=== PATIENT | male | born 1935 | race Caucasian/White ===

== ENCOUNTER 2024-04-24 09:16 | Outpatient (REF) | payer MEDICARE, BC, SELFPAY ==
--- NOTE | ~2024-04-24 | XR_ITS ---
EXAMINATION: XR SHOULDER, RIGHT CLINICAL INFORMATION: Patient states no trauma or injury, on and off right chronic shoulder pain. COMPARISON: None available. TECHNIQUE: Four views of the right shoulder. FINDINGS: Diffuse demineralization. Advanced degenerative changes in the acromioclavicular joint with joint space narrowing and hypertrophic change. Small soft tissue calcification along the superior aspect of the glenoid. Moderate degenerative changes in the glenohumeral joint. Hypertrophic change along the inferior aspect of the glenoid. XR/XR shoulder RT min 2V IMPRESSION: 1. Advanced degenerative changes in the acromioclavicular joint. 2. Moderate degenerative changes in the glenohumeral joint.
== END 2024-04-24 09:17 | disposition home or self-care (01) ==
LOC: HO.XRAY 09:16
PROVIDERS: PCP Internal Medicine; Visit Provider Internal Medicine
DX: M25.511 Pain in right shoulder (principal)
CPT/HCPCS: 73030

== ENCOUNTER 2024-05-07 08:07 | Outpatient (AMB) | payer MEDICARE, BC, SELFPAY ==
--- NOTE | 2024-05-07 08:19 | MHC.OFFVIS ---
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 Patient reports ongoing pain for a few years. He is a previous patient of which he saw him for his shoulder. gave patient some exercise to do from home which gave him mild relief. He mentions about a year ago he felt his shoulder is very sore. 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 He currently states he has pain and soreness in his shoulder that radiates down to his arm. His pain is aggravated abduction, overhead reaching, laying on back or shoulder, and at night. He was previously seen by Dr. Mcdonald who gave him some home exercises to work which provided him no relief. He takes Tylenol for his pain with benefits. [facility]LY [facility] Social History (Updated 05/07/24 @ 08:23 by Christine Medrano) Alcohol intake: current Alcohol intake frequency: a few times a week Alcohol type: wine Patient Tobacco Use Status: Never used Tobacco Current occupational status: retired Review of Systems Const All systems reviewed & are unremarkable except as noted in HPI and below Physical Exam Vital Signs: BMI result Body Mass Index 19.3 Const General: cooperative, healthy appearing, comfortable, no acute distress, well developed and alert Orientation/consciousness: patient oriented x3 HEENT Head: Yes normal to inspection, Yes normocephalic and Yes atraumatic Eyes General: appearance normal, both eyes and all related structures Resp Effort & Inspection: normal respiratory effort and able to speak in complete sentences Cardio Rate: regular rate Peripheral pulses: Peripheral pulses 2+ throughout GI Palpation (GI): Soft to palpation Skin Lesions: no lesions Rashes: no rashes Neuro General: patient oriented x3 Extrem Other: Right shoulder: Normal to inspection. Tenderness over the bicipital groove and along the deltoid region of the shoulder. Forward flexion to 175, external rotation to 90, internal rotation to S1. 5/5 RTC strength. Negative Main and cross body abduction. NVI. Office Procedures Joint Injection/Aspiration Joint Injection/Aspiration Primary Site: right knee Prep: site was prepped using aseptic technique, ethochloride spray was applied and injection warnings given Injected: 80 mg of, DepoMedrol, with 8 mL of, 1% plain lidocaine and in the subcromial space Approach Used: posterolateral Procedure: The patient tolerated the procedure well and there was some relief with the local anesthesia Coding 19380 - Glenohumeral/Tronchanteric Bursa/Intraarticular Procedure code (CPT) selection complete Results Reviewed Results Reviewed: xrays of the right shoulder obtained on 04/24/24 show ac joint oa with sloping of the acromion Assessment & Plan Assessment & Plan (1) Osteoarthritis of right acromioclavicular joint: Code(s): M19.011 - Primary osteoarthritis, right shoulder Category: Medical (2) Tendinitis of right rotator cuff: Code(s): M75.81 - Other shoulder lesions, right shoulder Category: Medical Plan We discussed options today, which include steroid injection. The patient did consent to move forward with the right shoulder injection, which was tolerated well. I recommended rest, ice, and elevation and OTC anti-inflammatories as needed for discomfort. If symptoms persist or worsen over the next 6-8 weeks, patient will contact the office, otherwise follow-up as needed. ? Patient Instructions: Scribed for Jonathan Moran PA-C, by João Padilla medical equipment repair technician, on 05/07/2024 at 8:00 AM EST.? I, Jonathan Moran PA-C, have personally reviewed and agree with the information entered by the scribe. Coding Level of Care Code New Pt Level 3 (09590) Diagnoses Osteoarthritis of right acromioclavicular joint M19.011 Tendinitis of right rotator cuff M75.81 CPT Codes Coding - Joint 7: 30622 - Glenohumeral/Tronchanteric Bursa/Intraarticular ([id number])
[2024-05-07 08:24] VITALS: BMI 19.3
== END 2024-05-07 09:27 | disposition home or self-care (01) ==
PROVIDERS: PCP Internal Medicine; Visit Provider Physician Assistant
DX: M19.011 Primary osteoarthritis, right shoulder (principal); M75.81 Other shoulder lesions, right shoulder
CPT/HCPCS: 20610; 99203

== ENCOUNTER → 2024-05-07 08:07 | Outpatient (BNVA) | payer MEDICARE, BC, SELFPAY | PROVIDERS: PCP Internal Medicine; Visit Provider Physician Assistant | DX: M19.011 Primary osteoarthritis, right shoulder (principal); M75.81 Other shoulder lesions, right shoulder | CPT/HCPCS: 20610; 99202; J1010 ==

== ENCOUNTER 2024-08-07 09:30 | Outpatient (AMB) | payer BC, MEDICARE, SELFPAY ==
--- NOTE | 2024-08-07 09:32 | MHC.OFFVIS ---
Vital Signs 08/07/24 09:34 Height 5 ft 7 in Weight 123 lb BMI 19.3 Intake Visit Reasons: Right shoulder pain Intake Note: Pio is an 89 year old male who presents with complaints of progressively worsening right shoulder pain. He describes his pain as sharp in nature. He reports mild weakness in his right shoulder. He has had injections in the past which gave him fairly good relief. He has tried Tylenol and anti-inflammatory medicines which gave him minimal relief. Allergies No Known Allergies [No Known Allergies*] Allergy (Unverified 08/07/24 09:34) Lisinopril Allergy (Unknown, Uncoded 08/07/24 09:34) Unknown Simvastatin Allergy (Unknown, Uncoded 08/07/24 09:34) Unknown Medication List - Last Reconciled 08/07/24 by Yusuf Mcdonald MD atorvastatin 10 mg PO DAILY [facility] Social History Alcohol intake: current Alcohol intake frequency: a few times a week Alcohol type: wine Patient Tobacco Use Status: Never used Tobacco Current occupational status: retired Physical Exam Vital Signs: BMI result Body Mass Index 19.3 Const Other: Well-nourished well-developed very friendly female awake alert and oriented x3 in no acute distress Extrem Other: Bilateral upper extremity examination shows good capillary refill, no skin lesions noted, normal sensation light touch Right shoulder examination shows slightly decreased range motion when compared to his left shoulder, 4+ out of 5 strength with supraspinatus testing, positive impingement signs, no instability Office Procedures AMB Joint Injection/Aspiration Joint Injection/Aspiration Primary Site: right shoulder Prep: site was prepped using aseptic technique Injected: 40 mg of, DepoMedrol and 1% plain lidocaine Procedure: The patient tolerated the procedure well Coding 09070 - Large joint Procedure code (CPT) selection complete Results Reviewed Results Reviewed: X-rays of the patient's right shoulder show severe acromioclavicular joint narrowing, a type 2 acromion, no acute bony abnormalities Assessment & Plan Assessment & Plan (1) Impingement of right shoulder: Code(s): M25.811 - Other specified joint disorders, right shoulder Category: Medical (2) Right shoulder pain: Code(s): M25.511 - Pain in right shoulder Plan Mr. Stewart presents with right shoulder pain due to impingement syndrome. I had a lengthy discussion with the patient regarding the treatment options. The risks and benefits of a right shoulder cortisone injection were discussed at length with the patient. The patient wished to proceed. He tolerated the injection well. He will continue with his home stretching program to prevent stiffness. He will contact me prior to his follow-up appointment in 3 months should any questions or concerns arise. Feel free to call me any time should questions regarding his orthopedic management arise. I spent 22 minutes in reviewing the patient's records and imaging studies, seeing the patient and documenting in the medical record. Orders: Orders AMB Joint Injection/Aspiration Today M25.811 - Other specified joint disorders, right shoulder Coding Level of Care Code Est Pt Level 3 (81215) Complex EM visit Add On G2211 Diagnoses Impingement of right shoulder M25.811 Right shoulder pain M25.511 CPT Codes Coding - 90637 Large joint: 31874 - Large joint ([id number])
[2024-08-07 09:34] VITALS: BMI 19.3
== END 2024-08-07 10:02 | disposition home or self-care (01) ==
PROVIDERS: PCP Internal Medicine; Visit Provider Orthopaedic Surgery
DX: M25.811 Other specified joint disorders, right shoulder (principal); M25.511 Pain in right shoulder
CPT/HCPCS: 20610; 99213

== ENCOUNTER → 2024-08-07 09:30 | Outpatient (BNVA) | payer BC, MEDICARE, SELFPAY | PROVIDERS: PCP Internal Medicine; Visit Provider Orthopaedic Surgery | DX: M25.811 Other specified joint disorders, right shoulder (principal) | CPT/HCPCS: 20610; J1010; J2003 ==

== ENCOUNTER 2024-11-18 10:35 | Outpatient (AMB) | payer MEDICARE, SELFPAY ==
--- NOTE | 2024-11-18 10:42 | A.OFFVIS_ITS ---
Vital Signs 11/18/24 10:46 Height 5 ft 7 in Weight 123 lb BMI 19.3 Intake Visit Reasons: Neck pain Intake Note: Pio is an 89 year old male who presents with complaints of progressively worsening neck pain which radiates down his right arm to his right hand. He also has chronic weakness in his right arm. States that his neck pain has gotten worse over the last year in spite of continued non operative treatments. He has tried Tylenol and anti-inflammatory medicines which gave him minimal relief. Has had cortisone injections given into his right shoulder in the past. The most recent injection gave him no relief. The patient reports difficulty lifting his right hand above shoulder height. He also states that he has weakness in his right hand when preparing dinner. Allergies No Known Allergies [No Known Allergies*] Allergy (Unverified 11/18/24 10:47) Lisinopril Allergy (Unknown, Uncoded 11/18/24 10:47) Unknown Simvastatin Allergy (Unknown, Uncoded 11/18/24 10:47) Unknown Medication List - Last Reconciled 11/18/24 by Yusuf Mcdonald MD atorvastatin 10 mg PO DAILY memantine 10 mg PO BID [facility] Social History Alcohol intake: current Alcohol intake frequency: a few times a week Alcohol type: wine Patient Tobacco Use Status: Never used Tobacco Current occupational status: retired Physical Exam Vital Signs: BMI result Body Mass Index 19.3 Const Other: Well-nourished well-developed very friendly male awake alert and oriented x3 in no acute distress Neck Other: Cervical spine examination shows right-sided paraspinal muscle tenderness, pain with range of motion, positive Spurling's test, 4/5 strength with testing of his right biceps and wrist extensors when compared to 5/5 strength on his left side Assessment & Plan Assessment & Plan (1) Neck pain on right side: Code(s): M54.2 - Cervicalgia Category: Medical Plan Mr. Stewart presents with progressively worsening neck pain which radiates into his right arm as well as associated right arm weakness most likely due to cervical stenosis or a disc herniation. Thus, I will send the patient for an MRI of his cervical spine for further evaluation. I will contact him by phone with results once available. He will call me prior to that time should his symptoms worsen in any way. Feel free to call me at any time should questions regarding his orthopedic management arise. I spent 21 minutes in reviewing the patient's records and imaging studies, seeing the patient and documenting in the medical record. Orders: Orders MR cervical spine wo con Today M54.2 - Cervicalgia Coding Level of Care Code Est Pt Level 3 (91869) Complex EM visit Add On G2211 Diagnoses Neck pain on right side M54.2
[2024-11-18 10:46] VITALS: BMI 19.3
--- OUTSIDE RECORDS SUMMARY | 2024-11-18 12:38 | XMS_ITS | Clinical Summary ---
Author Organization [facility] Address [address] [address] Phone Care Team Providers Care Fine Hairer Name Role Phone Adam Locke MD Primary Care Provider [phone] Allergies No known active allergies Medications atorvastatin (LIPITOR) 10 MG tablet Take 10 mg by mouth 1 (one) time each day 07/30/2022 Active memantine (NAMENDA) 10 MG tablet Take 20 mg by mouth 1 (one) time each day 06/12/2022 Active polyethylene glycol (GLYCOLAX) 17 g packet Take 17 g by mouth 1 (one) time each day Active Calcium Carbonate (CALCIUM 600 PO) Take 1 tablet by mouth 1 (one) time each day Active [place]-3 Fatty Acids (Fish Oil) 1200 MG capsule delayed-release Take 1 tablet by mouth 1 (one) time each day Active cholecalciferol (VITAMIN D-3) 25 MCG (1000 UT) tablet Take 1,000 Units by mouth 1 (one) time each day Active Active Problems Problem Noted Date Diagnosed Date Stage 3a chronic kidney disease 02/22/2023 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 Chronic kidney disease 09/05/2022 Encounters Date Type Department Care Team Description 09/01/2024 3:00 PM EST Office Visit [facility] [address] [address] Nikolai Anderson MD Stage 3 chronic kidney disease, not otherwise specified (HCC) (Primary Dx); Monoclonal gammopathy of undetermined significance (MGUS) from Last 3 Months Family History Medical History Relation Comments Diabetes Father Stroke Father Heart disease Mother Relation Status Comments Father Mother Social History Tobacco Use Types Packs/Day Years Used Date Smoking Tobacco: Former Cigarettes Smokeless Tobacco: Never Tobacco Cessation:Counseling Given: No Alcohol Use Standard Drinks/Week Comments Yes 0 (1 standard drink = 0.6 oz pur e alcohol) Sex and Gender Information Value Date Recorded Sex Assigned at Not on file Legal Sex Male 11:32 AM EDT Gender Identity Not on file Sexual Orientation Not on file Last Filed Vital Signs Vital Sign Reading Time Taken Comments Blood Pressure 108/80 09/01/2024 3:26 PM EST Pulse 78 09/01/2024 3:26 PM EST Temperature - - Respiratory Rate - - Oxygen Saturation 94% 09/01/2024 3:26 PM EST Inhaled Oxygen Concentration - - Weight 56.2 kg (124 lb) 03/17/2024 1:01 PM EDT Height - - Body Mass Index - - Plan of Treatment Upcoming Encounters Date Type Department Care Team (Late st Contact Info) Description 03/02/2025 1:00 PM EDT Office Visit [facility] [address] [address] Nikolai Anderson MD [address] [phone] Health Maintenance Due Date Last Done Comments Pneumococcal Vaccine: 65+ Ye ars (1 of 2 - PCV) 1941 Influenza Vaccine (#1) 2024 Hepatitis B Vaccine Aged Out No longe r eligible based on patient's age to complete this topic Procedures Procedure Name Priority Date/Time Associated Diagnosis Comments PTH, INTACT Routine 08/20/2024 11:24 AM EST VITAMIN D 25 HYDROXY Routine 08/20/2024 11:24 AM EST URINE ALBUMIN / CREATININE RATIO Routine 08/20/2024 11:24 AM EST RENAL FUNCTION PANEL Routine 08/20/2024 11:24 AM EST from Last 3 Months Results * (ABNORMAL) Urine Albumin / Creatinine Ratio (08/20/2024 11:24 AM EST) Creatinine, Ur 87.4 Not Estab. mg/dL [facility] Urine Microalbumin 360.9 Not Estab. ug/mL [facility] Microalbumin/Crea tinine Ratio 413(H) 0 - 29 mg/g [facility] Comment: ? Normal: ?0 - ??29 ? Moderately increased: 30 - 300 ? Severely increased: ? >300 08/20/2024 11:2 4 AM EST 08/20/2024 Nikolai Anderson MD LAB URINE ORDERABLES Final Resul t [facility] [address] [place] [address] * Vitamin D 25 Hydroxy (08/20/2024 11:24 AM EST) Pathologist [facility] Vitamin D, 25-OH, Total 64.8 30.0 - 100.0 ng/mL [facility] Comment: Vitamin D deficiency has been defined by the [place] of Medicine and an Endocrine Society practice guideline as a level of serum 25-OH vitamin D less than 20 ng/mL (1,2). The Endocrine Society went on to further define vitamin D insufficiency as a level between 21 and 29 ng/mL (2). 1. IOM ([place] of Medicine). 2010. Dietary reference ?? intakes for calcium and D. Mcdonald [place]: The ?? National AcademLight Sciences Oncology Press. 2. Lauren MF, José NC, Red AUGUSTE, et al. ?? Evaluation, treatment, and prevention of vitamin D ?? deficiency: an Endocrine Society clinical practice ?? guideline. JCEM. 2011 Mar; 96(7):1911-30. 08/20/2024 11:2 4 AM EST 08/20/2024 us Nikolai Anderson MD LAB BLOOD ORDERABLES Final Resul t Performing Organization Address City/[facility]/ZIP Co de Phone Number [facility] [address] [place] [address] * PTH, Intact (08/20/2024 11:24 AM EST) PTH 29 15 - 65 pg/mL [facility] 08/20/2024 11:2 4 AM EST 08/20/2024 us Nikolai Anderson MD LAB BLOOD ORDERABLES Final Resul t Performing Organization Address [facility] de Phone Number [facility] [address] [place] [address] * (ABNORMAL) Renal Function Panel (08/20/2024 11:24 AM EST) Glucose 91 70 - 99 mg/dL [facility] BUN 40(H) 8 - 27 mg/dL [facility] Creatinine 1.51(H) 0.76 - 1.27 mg/dL [facility] eGFR CKD-EPI CR 2020 44(L) >59 mL/min/1.7 3 [facility] BUN/Creatinine Ratio 26(H) 10 - 24 [facility] Sodium 144 134 - 144 mmol/L [facility] Potassium 4.5 3.5 - 5.2 mmol/L [facility] Chloride 103 96 - 106 mmol/L [facility] Bicarbonate (CO2) 26 20 - 29 mmol/L [facility] Calcium 9.5 8.6 - 10.2 mg/dL [facility] Albumin 4.2 3.7 - 4.7 g/dL [facility] Phosphorus 4.1 2.8 - 4.1 mg/dL [facility] 08/20/2024 11:2 4 AM EST 08/20/2024 us Nikolai Anderson MD LAB BLOOD ORDERABLES Final Resul t [facility] [address] [place] [address] from Last [address] Mon[address] [place] [address] [place] [id number] [facility] MEDICARE [facility] Care Teams Fine Hairer Relationship Specialty Start Date End Date Adam Locke MD [address] [place] [id number] PCP - General Internal Medicine 06/07/22
--- OUTSIDE RECORDS SUMMARY | 2024-11-18 12:38 | XMS_ITS | Clinical Summary ---
Author Organization [facility] Address [address] [place] [address] Care Team Providers Care Nurse Executive Name Role Phone Adam Locke MD Primary Care Provider Unavail able Allergies No known active allergies Medications Medication Sig Dispensed Refills Start Date End Date Status atorvastatin (LIPITOR) tablet 10 mg 0 05/13/2017 Active triamcinolone (KENALOG) 0.1 % cream 0 03/29/2017 Active Family History Medical History Relation Name Comments Diabetes Father Relation Name Status Comments Father Social History Tobacco Use Types Packs/Day Years Used Date Smoking Tobacco: Never Assessed Sex and Gender Information Value Date Recorded Sex Assigned at Not on file Gender Identity Not on file Sexual Orientation Not on file Last Filed Vital Signs Vital Sign Reading Time Taken Comments Blood Pressure - - Pulse - - Temperature - - Respiratory Rate - - Oxygen Saturation - - Inhaled Oxygen Concentration - - Weight 65.8 kg (145 lb) 05/22/2017 10:47 AM EDT Height 170.2 cm (5' 7 ) 05/22/2017 10:47 AM EDT Body Mass Index 22.71 05/22/2017 10:47 AM EDT Plan of Treatment Health Maintenance Due Date Last Done Comments COVID-19 Vaccine (#1) 1935 Depression Screening 1947 Preventative Health Evaluation 1953 DTap / Tdap / Td (1 - Tdap) 1954 Shingrix-Zoster Vaccine (1 of 2) 1985 Fall Risk Assessment 2000 Pneumococcal Vaccine (1 of 1 - PCV) 2000 RSV Adult > 60+ Yrs or Pregn ant (1 - 1-dose 75+ series) 2010 Influenza Vaccine (#1) 2024 Hepatitis B Vaccines Aged Out No long er eligible based on patient's age to complete this topic RSV Ped < 20 months Aged Out No longe r eligible based on patient's age to complete this topic Care Teams Nurse Executive Relationship Specialty Start Date End Date Adam Locke MD PCP - General Internal Medicine 05/03/17
== END 2024-11-18 11:10 | disposition home or self-care (01) ==
PROVIDERS: PCP Internal Medicine; Visit Provider Orthopaedic Surgery
DX: M54.2 Cervicalgia (principal)
CPT/HCPCS: 99213; G2211

== ENCOUNTER → 2024-11-18 10:35 | Outpatient (BNVA) | payer BC, MEDICARE, SELFPAY | PROVIDERS: PCP Internal Medicine; Visit Provider Orthopaedic Surgery | DX: M54.2 Cervicalgia (principal) | CPT/HCPCS: 99212 ==

== ENCOUNTER 2024-11-30 14:12 | Outpatient (REF) | payer MEDICARE, SELFPAY ==
--- NOTE | ~2024-11-30 | MR_ITS ---
EXAMINATION: MR CERVICAL SPINE WITHOUT CONTRAST CLINICAL INFORMATION: Cervicalgia. COMPARISON: None available. TECHNIQUE: MRI of the cervical spine was obtained using routine sequences without contrast. FINDINGS: Craniocervical junction is intact. Trace of fluid at the lateral masses of C1-C2.. Bone marrow inhomogeneity. No gross bone marrow STIR signal abnormality. Multilevel disc desiccation and marginal osteophyte formation and endplate irregularity C3 C7 more accentuated at C3-4 and C5-6 levels. Grade 1 retrolisthesis C3-4, C4-5 and C5-6 levels. Cervical spinal cord signal is normal. C2-3: No disc herniation. No neuroforamina stenosis. C3-4: Broad-based disc osteophyte complex formation. No cord compression. Facet joint hypertrophy bilaterally. Left neuroforamina narrowing on a degenerative basis. C4-5: Broad-based disc osteophyte complex formation. No cord compression. Facet joint and ligamentum flavum hypertrophy. Right neuroforamina narrowing. C5-6: Broad-based disc osteophyte complex formation. Facet joint and ligamentum flavum hypertrophy. Right neuroforamina narrowing. C6-7: No disc herniation. No neuroforamina stenosis. C7-T1: No disc herniation. No neuroforamina stenosis. No prevertebral compartment hematoma, mass or fluid collection. Flow-void signal within the main vessels is normal with the exception of the left internal jugular vein demonstrated the intermediate T1 and slightly increased T2 signal. Codominant vertebral arteries. MR/MR cervical spine wo con IMPRESSION: Multilevel cervical spondylosis C3 C7 resulting in grade 1 retrolisthesis C3-4, C4-5 and C5-6 and mild central spinal canal stenosis C4-5 C5-6 left neuroforamina and C3-4 and right C4-5 and C5-6 neuroforamina narrowing. No cord compression, cord edema and or myelopathy. Probable slow flow left internal jugular vein. Electronically signed by: Kiran Canchola MD 12/01/2024 07:55 AM EDT
== END 2024-11-30 14:13 | disposition home or self-care (01) ==
LOC: HO.MRI 14:12
PROVIDERS: PCP Internal Medicine; Visit Provider Orthopaedic Surgery
DX: M54.2 Cervicalgia (principal)
CPT/HCPCS: 72141

== ENCOUNTER → 2024-11-30 14:21 | Outpatient (BNV) | payer MEDICARE, SELFPAY | PROVIDERS: PCP Internal Medicine; Visit Provider Radiology Diagnostic Radiology | DX: M48.02 Spinal stenosis, cervical region (principal) | CPT/HCPCS: 72141 ==

== ENCOUNTER 2024-12-18 12:48 | Outpatient (AMB) | payer MEDICARE, SELFPAY ==
[2024-12-18 12:56] VITALS: BP 167/72; PULSE 87; O2SAT 98; BMI 19.4
--- NOTE | 2024-12-18 12:56 | A.OFFVIS_ITS ---
Vital Signs 12/18/24 12:56 Height 5 ft 7 in Weight 124 lb BMI 19.4 BP 167/72 H Blood Pressure Location Rt brachial Position Sitting Pulse 87 Pulse Source Pulse Oximeter Pulse Oximetry (%) 98 Oxygen Delivery Method Room Air Intake Visit Reasons: Cervicalgia Accompanied by: Spouse Allergies No Known Allergies [No Known Allergies*] Allergy (Unverified 12/18/24 12:59) Lisinopril Allergy (Unknown, Uncoded 12/18/24 12:59) Unknown Simvastatin Allergy (Unknown, Uncoded 12/18/24 12:59) Unknown HPI Comments Details: Pio is very pleasant 89 years old gentleman who presents today in my office with complains on shoulder pain. He admits radiation of the pain into the upper shoulder from the mid shoulder however she denies radiation of the pain to the center of the neck. He reports that this pain started in 10 to 15 years ago. He was under care of Dr. Mcdonald who performed on several occasions intra- articular shoulder injections in the right shoulder. He admits that the pain was not relieved by the injections. He was sent for the MRI of the cervical spine and the report of the MRI see as below. He admits difficulty moving his right shoulder he can not sleep normally because of his pain, he can not do activities of daily living, he can take care of himself but he can not function normally. He is retired individual. He admits that he no longer enjoys playing golf for cutting his grass next to fix house because of his shoulder pain. In terms of tissue damage he reports his pain is jumping, flushing, shooting. He had multiple sessions of physical therapy for his shoulder with not significant improvement. He continues home exercise. It is getting harder and harder for him to get home exercise because of severe pain in his shoulder. Past medical history significant for prostate problems and arthritis. He had prostate surgery 20 years ago he denies smoking cigarettes he drinks wine in moderation he drinks 1-2 cups of coffee a day he denies recreational drugs. [facility] Surgical History (Updated 12/18/24 @ 13:01 by Dede Dorsey CMA) History of prostate surgery Social History Alcohol intake: current Alcohol intake frequency: a few times a week Alcohol type: wine Patient Tobacco Use Status: Never used Tobacco Current occupational status: retired Review of Systems Const Reports no additional complaints and Reports weight loss ENT Reports Normal hearing present Card Reports no additional complaints Resp Reports no additional complaints GI Reports no additional complaints Reports as per HPI Musc Reports as per HPI Neuro Reports Normal hearing present, Denies Abnormal speech present and Denies Sensory deficit (Neuro) Psych Reports no additional complaints Endo Reports no additional complaints Shaheen/Lymph Reports no additional complaints Physical Exam Vital Signs: Last Vital Signs Pulse 87 12/18/24 12:56 BP 167/72 H 12/18/24 12:56 Pulse Ox 98 12/18/24 12:56 Oxygen Delivery Method Room Air 12/18/24 12:56 BMI result Body Mass Index 19.4 Const General: no acute distress, alert, awake, Physically active, tired appearing and well groomed Nutritional Appearance: thin and underweight Orientation/consciousness: patient oriented x3 Eyes General: appearance normal, both eyes and all related structures Pupils: Equal, round and reactive pupils present EOM: EOMs intact bilaterally Neck Other: No tenderness on palpation in paraspinal spinal region of the cervical spine. Flexing head forward and backwards mild aggravate pain in his shoulder , bilateral triceps muscle reflex and brachioradialis reflex are symmetrical and +2. Performance of Spurling maneuver is impossible because of severe pain in the left shoulder. No pain aggravation with Spurling maneuver on the right shoulder. Lhermitte test is negative. Valsalva maneuver does not aggravate pain of the patient. Neck: Yes full ROM Chest Chest palpation & inspection: normal inspection of the chest Resp Effort & Inspection: normal respiratory effort, able to speak in complete sentences, normal respiratory pattern, no audible wheezes and no cough Cardio Jugular venous distension: no JVD GI Inspection: Yes normal to inspection Neuro General: patient oriented x3 and gait normal Cranial nerves: Yes CN's II-XII intact bilaterally, Yes Equal, round and reactive pupils present, Yes Normal hearing present and Yes Ability to bilater ally elevate shoulders present Speech: No Abnormal speech present Gait exam (Neuro): Normal gait present Motor exam (neuro): 5/5 motor strength present throughout Sensory Exam: No Sensory deficit (Neuro) Extrem Other: Severe crepitus is detected in the right shoulder of the patient with any motions performed. Bilateral upper extremity examination shows good capillary refill, no skin lesions noted, normal sensation light touch Right shoulder examination shows significantly decreased range motion when compared to his left shoulder, 4+ out of 5 strength with supraspinatus testing, no instability. General: No pedal edema Psych Speech and movement: Normal speech and movement present Affect: normal affect Attitude: cooperative Thought process: Normal thought process present Thought content: Normal thought content present Insight: Good insight present (Psych) Judgement: Good judgement present (Psych) Results Reviewed Results Reviewed: Cervical spine MRI 11/30/2024. Findings: Craniocervical junction is intact. Trace of fluid in the lateral masses of C1-C2. Bone marrow inhomogeneity. No gross bone marrow STIR signal abnormality. Multilevel disc desiccation and marginal osteophyte formation endplate irregularity C3-C7 more accentuated at C3-C4 and C5-C6 levels. Grade 1 retrolisthesis C3-C4 C4-C5 and C5-C6. Cervical spinal cord signal is normal. C2-C3: No disc herniation no neural foraminal stenosis. C3-C4: Broad-based disc osteophyte complex formation, no cord compression, facet joint hypertrophy bilaterally, left neural foraminal narrowing on degenerative basis. C4-C5: Broad-based disc osteophyte complex formation no cord compression. Facet joint and ligamentum flavum hypertrophy. Right neural foramina narrowing. C5-C6: Broad-based disc osteophyte complex formation. Facet joint and ligamentum flavum hypertrophy. Right neural foraminal narrowing. C6-C7 no disc herniation no neural foraminal stenosis. C7-T1: No disc herniation no neural foraminal stenosis. No prevertebral compartmental hematoma muscle fluid collection. Flow void signal within the main vessels is normal with the exception of left internal jugular vein demonstrating the intermediate T1 and slightly increased T2 signal. Codominant vertebral arteries. Impression: Multilevel cervical spondylosis C3 through C7 resulting in grade 1 retrolisthesis C3-C4, C4-C5 and C5-C6 and mild central canal stenosis C4-C5 C5- C6, left neural foraminal and C3-C4 and right C4-C5 and C5-C6 neural foraminal narrowing. No cord compression cord edema or myelopathy. Probable slow flow left internal jugular vein. X-ray shoulder on the right 04/24/2024. Findings: Diffuse demineralization. Advanced degenerative changes in the acromioclavicular joint with joint space narrowing in hypertrophic changes. Small soft tissue calcification along the superior aspect of the glenoid. Moderate degenerative changes in glenohumeral joint. Hypertrophic changes along the inferior aspect of the glenoid. Impression: Advanced degenerative changes in the acromioclavicular joint. Moderate degenerative changes in glenohumeral joint. Assessment & Plan Assessment & Plan (1) Osteoarthritis of right acromioclavicular joint: Code(s): M19.011 - Primary osteoarthritis, right shoulder Category: Medical (2) Arthritis of right glenohumeral joint: Code(s): M19.011 - Primary osteoarthritis, right shoulder Category: Medical (3) Spondylosis of cervical spine without myelopathy: Code(s): M47.812 - Spondylosis without myelopathy or radiculopathy, cervical region Category: Medical (4) Chronic pain syndrome: Code(s): G89.4 - Chronic pain syndrome Category: Medical (5) Right shoulder pain: Code(s): M25.511 - Pain in right shoulder Category: Medical Plan After examining this patient and evaluating this patient's diagnostic reports I was left under impression that his pain is coming from the advanced arthritis on the left shoulder and unlikely the results of the spondylosis of the cervical spine. Patient denies pain in the neck at rest, he has significant range of motion in the cervical spine with forward and backwards flexing. His reflexes are symmetrical bilaterally. On the MRI there is no nerve root compressions dictated. At the same time there is advanced AC and GH arthritic changes on the shoulder x-ray on the right. I would presume the significant arthritis the cause of the pain of this patient. I offered him suprascapular nerve block diagnostic to see if suprascapular nerve stimulation will help his pain. If not alternatively interscalene diagnostic injection could possibly alleviate his pain in the left shoulder. Sprint PNS could be offered after either injection for more permanent pain alleviation for this patient. Patient Instructions: I here by testify that I spent 45 minutes in conversation with this patient, evaluation of his diagnostic reports, planning his care and organizing this note. Coding Level of Care Code New Pt Level 4 (79040) Diagnoses Osteoarthritis of right acromioclavicular joint M19.011 Arthritis of right glenohumeral joint M19.011 Spondylosis of cervical spine without myelopathy M47.812 Chronic pain syndrome G89.4 Right shoulder pain M25.511
== END 2024-12-18 13:42 | disposition home or self-care (01) ==
LOC: HO.PMC 12:48
PROVIDERS: PCP Internal Medicine; Referring Provider Orthopaedic Surgery; Visit Provider Anesthesiology
DX: M19.011 Primary osteoarthritis, right shoulder (principal); M47.812 Spondylosis without myelopathy or radiculopathy, cervical region; G89.4 Chronic pain syndrome; M25.511 Pain in right shoulder
CPT/HCPCS: 99204

== ENCOUNTER → 2024-12-18 12:48 | Outpatient (BNVA) | payer MEDICARE, SELFPAY | PROVIDERS: PCP Internal Medicine; Referring Provider Orthopaedic Surgery; Visit Provider Anesthesiology | DX: M19.011 Primary osteoarthritis, right shoulder (principal); M47.812 Spondylosis without myelopathy or radiculopathy, cervical region; G89.4 Chronic pain syndrome | CPT/HCPCS: 99202 ==

== ENCOUNTER 2025-02-01 07:41 | Emergency (ER) | payer MEDICARE, SELFPAY ==
[2025-02-01] VITALS (9 sets, daily range): BP systolic 130–157; BP diastolic 62–86; PULSE 76–85; RESP 14–18; TEMP 36.4–36.8; O2SAT 97–99
--- NOTE | ~2025-02-01 | CT_ITS ---
CLINICAL HISTORY: fall CT cervical spine without contrast Comparison: MR - MR CERVICAL SPINE WO CON - 11/30/24 14:34 EDT Findings: Normal vertebral body alignment. There is multilevel degenerative disc disease particularly at the C3-4 through C5-6 levels. No acute fractures or dislocations. No acute findings on limited view of the intracranial contents. Soft tissues of the neck are normal. Lung apices are clear. IMPRESSION: No acute findings. Degenerative disc disease as above. This document has been electronically signed by: Glenn Ontiveros MD on 02/01/2025 09:04:14
--- NOTE | ~2025-02-01 | CT_ITS ---
CLINICAL HISTORY: fall headstrike CT head without contrast Comparison: None Findings: There is left frontal acute parenchymal and subarachnoid hemorrhage. The parenchymal hemorrhage measures approximately 1.6 x 1.2 x 2.1 cm. There is mild adjacent edema. A 2nd focal hemorrhage is seen in the right parietal region measuring 6 mm in greatest dimension. There is moderate cortical atrophy. The visualized paranasal sinuses and mastoid air cells are normal. The orbits are within normal limits. There is an overlying scalp hematoma. There is no evidence of fracture. No skull fracture. There is chronic sinusitis and nasal polyps are noted. Microvascular changes are noted. IMPRESSION: There is left frontal acute parenchymal and subarachnoid hemorrhage. The parenchymal hemorrhage measures approximately 1.6 x 1.2 x 2.1 cm. There is mild adjacent edema without significant mass effect. A 2nd focal hemorrhage is seen in the right parietal region measuring 6 mm in greatest dimension. This document has been electronically signed by: Glenn Ontiveros MD on 02/01/2025 09:05:41
--- NOTE | 2025-02-01 08:03 | ECG_ITS ---
Test Reason : FALL Blood Pressure : */* mmHG Vent. Rate : 79 BPM Atrial Rate : 79 BPM P-R Int : 158 ms QRS Dur : 76 ms QT Int : 394 ms P-R-T Axes : 76 77 70 degrees QTcB Int : 451 ms Normal sinus rhythm Nonspecific ST abnormality Abnormal ECG When compared with ECG of 20-Mar-2003 14:11, No significant changes seen Referred By: Estefany Lincoln Electronically Signed By: BARTOLO [place]
--- OUTSIDE RECORDS SUMMARY | 2025-02-01 08:04 | XMS_ITS | Clinical Summary ---
Author Organization [facility]. 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 Chronic kidney disease 09/05/2022 Family History Medical History Relation Comments Diabetes [...] Office Visit [facility] [address] [phone] Nikolai Anderson MD [address] [phone] Health Maintenance Due Date Last Done Comments Pneumococcal Vaccine: 50+ Ye ars (1 of 2 - PCV) 1954 Influenza Vaccine (Season Ended) 2025 Hepatitis B Vaccine Aged Out No longe r eligible based on patient's age to complete this topic Insurance Medicare [facility] Medicare [facility] Care Teams Ict Support And Test Engineers Relationship Specialty Start Date End Date Adam Locke MD [address] [place] [id number] PCP - General Internal Medicine 06/07/22
--- NOTE | 2025-02-01 08:14 | ED.WEAKNESS ---
HPI - Weakness General Chief complaint: Fall Stated complaint: fall +hs, ams Time Seen by Provider: 02/01/25 08:00 Source: patient, EMS and old records reviewed Mode of arrival: EMS Limitations: no limitations History of Present Illness ED Provider: YOVANY CARDOSO Narrative: 89 yo male with PMH of mild cognitive impairment, hyperlipidimia not on blood thinners. 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 After he was done cooking he felt very weak and dizzy. He tried to sit down but he fell hitting his head and thinks he had a brief LOC. Prior to feeling dizzy he had no CP/SOB. He has not been sick recently no fevers, dysuria, chest pain/sob, no GIB symptoms reported. He has no new medications. He notes recently when standing he does feel dizzy but he is usually able to sit down and rest for 30 minutes it then goes away. Has a laceration to left side of head. Bleeding controlled. Patient states brief LOC but EMS notes he was still unresponsive and slow to come around on their arrival. No seizure activity reported. 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) Duration: now resolved Location: generalized Migration: none Severity: moderate Quality: other Relieving factors: rest Exacerbating factors: other (standing up recently ) Associated symptoms: denies other symptoms Related Data Home Medications ?Medication ?Instructions ?Recorded ?Confirmed atorvastatin 10 mg tablet 10 mg PO DAILY 05/07/24 11/18/24 memantine 10 mg tablet 10 mg PO BID 11/18/24 11/18/24 Allergies Allergy/AdvReac Type Severity Reaction Status Date / Time No Known Allergies Allergy Verified 02/01/25 07:46 [No Known Allergies*] Lisinopril Allergy Unknown Unknown Uncoded 02/01/25 07:46 Simvastatin Allergy Unknown Unknown Uncoded 02/01/25 07:46 Review of Systems Review of Systems: Constitutional : No Fever, No Chills, No Fatigue ENT/Mouth : No sore throat, No Rhinorrhea Eyes: No Eye Pain, No Swelling, No Redness Cardiovascular : No Chest Pain, No SOB, No Dyspnea on Exertion Respiratory : No Cough, No Sputum Gastrointestinal : No Nausea, No Vomiting, No Diarrhea, No abdominal Pain Genitourinary : No Dysuria, No Urinary Frequency, No Hematuria, Musculoskeletal : No joint pain, No Myalgias, No Joint Swelling Skin : No Skin Lesions, No rash, pos laceration Neuro : No Weakness, No Numbness, No Dizziness, positive Headache All other systems reviewed and are negative [facility] Past Medical History Attestation statement: The following information was validated with the patient. 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 Chronic pain syndrome Surgical History History of prostate surgery Social History Social History Alcohol intake: current Alcohol intake frequency: a few times a week Alcohol type: wine Patient Tobacco Use Status: Never used Tobacco Smoked in Last 30 Days: No Use of substances other than those prescribed or required for medical reasons: No Advance Directives: No Advance Directives Information Provided: No Do you have a plan to hurt others: No Plan Current occupational status: retired Physical Exam Vital Signs: Vital Signs: Last Vital Signs Temp 97.6 F 02/01/25 09:21 Pulse 76 02/01/25 09:54 Resp 16 02/01/25 09:54 BP 142/86 H 02/01/25 09:54 Pulse Ox 98 02/01/25 09:54 O2 Del Method Room Air 02/01/25 09:54 BMI result Body Mass Index 20.0 Appearance: Alert. Oriented X3. No acute distress. Eyes: Pupils equal, round and reactive to light. ENT: Pharynx normal. L side of jewish area - abrasion and laceration covered in dried blood 2cm superficial abrasion and skin tear will use dermabond Neck: Normal inspection. Neck supple. CVS: Normal heart rate and rhythm. Pulses normal. Respiratory: No respiratory distress. Breath sounds normal. Abdomen: Soft and nontender. Skin: Skin warm and dry. Normal skin color. Normal skin turgor. Extremities: No lower extremity edema. No calf ttp Neuro: Oriented X 3. No motor deficit. No sensory deficit. CN2-12 intact. GCS 15 NIH Stroke Scale Internal: Initial- Upon Arrival Level of Consciousness: Alert Level of Consciousness Questions: Answers both questions correctly Level of Consciousness Commands: Performs both tasks correctly Best Gaze: Normal Visual: No visual loss Facial Palsy: Normal Motor Arm (Right): No drift Motor Arm (Left): No drift Motor Leg (Right): No drift Motor Leg (Left): No drift Limb Ataxia: Absent Sensory: Normal Best Language: No aphasia Dysarthia: Normal Extinction and Inattention: No abnormality Score: 0 Course Course Course Narrative: call to [facility] 907am Reevaluation(s) Reevaluation #1: accepted to [facility] for Trauma consult Dr. Pan 925am GCS 15 still given IV tylenol BP on DC under 150 systolic Reevaluation #2: c collar removed no posterior ttp and no radicular symptoms Medications Administered Discontinued Medications Generic Name Dose Route Start Last Admin Trade Name Freq PRN Reason Stop Dose Admin Acetaminophen 1,000 mg in 100 mls @ 400 mls/hr 02/01/25 09:42 02/01/25 09:51 Ofirmev IV 02/01/25 09:56 400 mls/hr ONCE ONE Administration Lidocaine/Epinephrine/Tetracaine 3 ml 02/01/25 08:02 02/01/25 08:30 Lidocaine/Racepinep/Tetracaine 3 Ml Gel.Pf.Denzel TOPICAL 02/01/25 08:03 Not Given ONCE ONE Medical Decision Making Medical Decision Making [facility] Narrative: 89 yo male with PMH of mild cognitive impairment, hyperlipidimia not on blood thinners here with episode of preceding dizziness then remembers falling down to the ground - he had a headstrike he does note brief LOC but he was unresponsive on EMS arrival - he is now alert and oriented x 3. He has head trauma on exam - at this time will need labs, CT head/cspine for trauma given age and temporal injury, EKG, ortho VS as he has had increasing positional symptoms, basic labs and EKG. No CP/SOB or exertional symptoms recently to suggest ACS/VTE. 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 02/01/25 08:18 02/01/25 08:18 Labs: Lab Results 02/01/25 02/01/25 Range/Units 08:18 08:19 WBC 6.8 (4.8-10.8) X10*3/uL RBC 3.09 L (4.60-5.80) X10*6/uL Hgb 9.5 L (14.0-18.0) g/dl Hct 29.7 L (42.0-52.0) % MCV 96.1 (80.0-98.0) fL MCH 30.7 (27.0-33.0) pg MCHC 32.0 (31.0-36.0) g/dl RDW 14.0 (11.0-16.0) % Plt Count 231 (160-400) X10*3/uL MPV 9.7 (9.4-12.4) fL Immature Gran % (Auto) 0.4 (0.0-0.4) % Neut % (Auto) 56.5 (45-73) % Lymph % (Auto) 25.9 (20-40) % [place] % (Auto) 13.4 H (2-11) % Eos % (Auto) 3.1 (0-4) % Baso % (Auto) 0.7 (0-2) % Lymph # (Auto) 1.8 (1.2-4.9) X10*3/uL [place] # (Auto) 0.9 (0.1-1.2) X10*3/uL Eos # (Auto) 0.2 (0.0-0.4) X10*3/uL Baso # (Auto) 0.1 (0.0-0.2) X10*3/uL Abs Immat Gran (auto) 0.03 (0.00-0.03) X10*3/uL Absolute Neuts (auto) 3.8 (2.0-8.3) x10*3/uL Absolute Nucleated RBC 0.000 (0.0-0.012) X10*3/uL Nucleated RBC % (auto) 0.0 (0.0-0.2) /100WBC Sodium 145 (135-145) mmol/L Potassium 4.6 (3.3-5.1) mmol/L Chloride 108 (96-108) mmol/L Carbon Dioxide 28 (22-29) mmol/L Anion Gap 14 (12-20) BUN 36 H (9-16) mg/dL Creatinine 1.66 H (0.5-1.4) mg/dL Estim Creat Clear Calc 24.7 Estimated GFR 39 Random Glucose 118 H (60-115) mg/dL Calcium 8.7 (8.4-10.2) mg/dL Magnesium 2.1 (1.6-2.6) mg/dL Total Bilirubin 0.3 (0.0-1.0) mg/dL Direct Bilirubin 0.1 (0.0-0.5) mg/dL AST 23 (5-37) U/L ALT 17 (0-40) U/L Alkaline Phosphatase 53 (39-117) U/L Troponin I High Sens 5.0 (<3.5-35.0) ng/L C-Reactive Protein < 0.04 (< or = 0.50) mg/dL B-Natriuretic Peptide 60 (<100) pg/mL Total Protein 6.5 (6.5-8.0) g/dL Albumin 3.7 (3.5-5.0) g/dL Lipase 138 H (8-78) U/L Influenza Type A (PCR) NEGATIVE (Negative) Influenza Type B (PCR) NEGATIVE (Negative) RSV RNA Qual (PCR) NEGATIVE (Negative) SARS-CoV-2 RNA (RT-PCR) NEGATIVE (Negative) Independent Interpretation I performed an independent interpretation of an: EKG, Plain X-Ray and CT Scan Interpretation: Rate: 79 Rhythm: NSR [place]: normal Normal P waves. Normal YINKA. Normal QRS complex. ST T wave : flat t wave aVL, inverted t wave V1, no BRENDA qTC: 451 prior studies: no acute ischemia The study has been interpreted contemporaneously by me. . Radiology Impression Discussion of test interpretation with radiology: I have reviewed the radiologist's reading. Radiologist Impression: IMPRESSION: There is left frontal acute parenchymal and subarachnoid hemorrhage. The parenchymal hemorrhage measures approximately 1.6 x 1.2 x 2.1 cm. There is mild adjacent edema without significant mass effect. A 2nd focal hemorrhage is seen in the right parietal region measuring 6 mm in greatest dimension. Findings: Normal vertebral body alignment. There is multilevel degenerative disc disease particularly at the C3-4 through C5-6 levels. No acute fractures or dislocations. No acute findings on limited view of the intracranial contents. Soft tissues of the neck are normal. Lung apices are clear. IMPRESSION: No acute findings. Degenerative disc disease as above. Procedures Laceration Laceration 1: Site: face Side (If applicable): left Size (cm): 2 Description: other (skin tear / abrasion) Depth: simple, single layer Local Anesthetic: other anesthetic Pre-repair: wound explored and irrigated extensively Skin layer closed with: other (dermabond) Critical Care Time Critical Care Time Critical Care Time: Yes Total Critical Care Time: 45 Attestation: Time is exclusive of separately billable procedures. Time includes: direct patient care, patient reassessment, coordination of patient care, interpretation of data (laboratory data, pulse oximetry, arterial blood, CT head, chest xrays), review of patient's medical records, medical consultation and documentation of patient care. Procedures excluded from critical care time: electrocardiography. Acute trauma transfer I attest to this time spent taking care of the patient Discharge Plan Discharge Clinical Impression: Intracranial hemorrhage Facial laceration Qualifiers: Encounter type: initial encounter Qualified Code(s): S01.81XA - Laceration without foreign body of other part of head, initial encounter Traumatic subarachnoid hemorrhage Qualifiers: Encounter type: initial encounter Loss of consciousness presence/duration: with LOC of 30 min or less Qualified Code(s): S06.6X1A - Traumatic subarachnoid hemorrhage with loss of consciousness of 30 minutes or less, initial encounter Patient Disposition: Critical Access Hospital Hospital Transfer Details: [facility] Prescriptions: No Action memantine 10 mg tablet 10 mg PO BID atorvastatin 10 mg tablet 10 mg PO DAILY Print Language: [place]
--- NOTE | 2025-02-01 08:18 | PC.NURSE ---
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 +LOC - thinners C/o head pain rated 5/10. Laceration noted to left pentecostal, bleeding controlled. EMS reports patient unresponsive on arrival but slowly became coherent, FASTED 1. Upon Ed arrival A&O x 3. Eyes PERRLA. Neuros intact. VSS up to date. NSR on nurse obgyn. 18G in LFA via EMS, patent intact. Labs obtained sent to lab EKG performed by tech. Patient seen by ED provider patient aware of plan of care.Remains in C collar at this time RR even and unlabored. Pending CT.
[2025-02-01 08:29] LABS: MANUAL DIFF FLAG NO
[2025-02-01 08:30] LABS: Basophils Absolute Auto 0.1 X10*3/uL (0.0-0.2); Basophils Percent Auto 0.7 % (0-2); Eosinophils Absolute Auto 0.2 X10*3/uL (0.0-0.4); Eosinophils Percent Auto 3.1 % (0-4); Hematocrit 29.7 % (42.0-52.0); Hemoglobin 9.5 g/dl (14.0-18.0); Imm Gran Abs Auto 0.03 X10*3/uL (0.00-0.03); Imm Gran Pct Auto 0.4 % (0.0-0.4); Lymphocytes Absolute Auto 1.8 X10*3/uL (1.2-4.9); Lymphocytes Percent Auto 25.9 % (20-40); Mean Corpuscular Hemoglobin 30.7 pg (27.0-33.0); Mean Corpuscular Volume 96.1 fL (80.0-98.0); Mean Platelet Volume 9.7 fL (9.4-12.4); Monocytes Absolute Auto 0.9 X10*3/uL (0.1-1.2); Monocytes Percent Auto 13.4 % (2-11); Neutrophils Absolute Auto 3.8 x10*3/uL (2.0-8.3); Neutrophils Percent Auto 56.5 % (45-73); Platelet Count 231 X10*3/uL (160-400); Red Blood Count 3.09 X10*6/uL (4.60-5.80); White Blood Count 6.8 X10*3/uL (4.8-10.8)
--- NOTE | 2025-02-01 08:44 | PC.NURSE ---
Patient returned from CT at this time.Vital signs remain in normal limits. 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 On RA w/o difficulty. Per MD, Head CT displays + bleed. Patients HOB positioned at 90 degrees. PERRLA remains intact. Additional 18G in right FA. Patient pending transfer. Plan of care on going.
--- NOTE | 2025-02-01 08:50 | MHC.EDTECH ---
Patient came bace from Head CT and dispay bleeding , ORTHO vitals in hold RN (Jose Francisco/Erica) aware.
[2025-02-01 08:54] LABS: B Type Natriuretic Peptide 60 pg/mL (<100)
[2025-02-01 09:00] LABS: Alanine Aminotransferase 17 U/L (0-40); Albumin Level 3.7 g/dL (3.5-5.0); Alkaline Phosphatase 53 U/L (39-117); Anion Gap 14 (12-20); Aspartate Amino Transferase 23 U/L (5-37); Bilirubin Direct 0.1 mg/dL (0.0-0.5); Bilirubin Total 0.3 mg/dL (0.0-1.0); Blood Urea Nitrogen 36 mg/dL (9-16); C Reactive Protein < 0.04 mg/dL (< or = 0.50); Calcium 8.7 mg/dL (8.4-10.2); Carbon Dioxide 28 mmol/L (22-29); Chloride 108 mmol/L (96-108); Creatinine Clr Calc Pharmacy 24.7; Estimated Glomerular Filt Rate 39; Glucose Random 118 mg/dL (60-115); Lipase 138 U/L (8-78); Magnesium 2.1 mg/dL (1.6-2.6); Potassium 4.6 mmol/L (3.3-5.1); Sodium 145 mmol/L (135-145); Total Protein 6.5 g/dL (6.5-8.0)
[2025-02-01 09:08] LABS: Influenza A PCR NEGATIVE (Negative); Influenza B PCR NEGATIVE (Negative); Resp Syncy Virus RNA Qual PCR NEGATIVE (Negative); SARS COV2 PCR INHOUSE NEGATIVE (Negative)
--- NOTE | 2025-02-01 09:25 | PC.NURSE ---
Laceration cleansed, dermabond applied to affected area. PERRLA remains intact. Pending transfer
[2025-02-01] MEDS: Acetaminophen 1,000 MG/100 ML PIGGYBACK 400 MG IV (09:51)
--- NOTE | 2025-02-01 10:04 | PC.NURSE ---
Report given to [facility] for transfer to [facility]
--- NOTE | 2025-02-01 10:10 | PC.NURSE ---
Hand off report given to Lori Valle at [facility] [place]. Patient on stretcher currently [place] [facility]
== END 2025-02-01 10:13 | disposition short-term general hospital (02) ==
PROVIDERS: Emergency Provider Emergency Medicine
DX: S01.81XA Laceration without foreign body of other part of head, initial encounter (principal); S06.6X1A Traumatic subarachnoid hemorrhage with loss of consciousness of 30 minutes or less, initial encounter; R51.9 Headache, unspecified; M54.50 Low back pain, unspecified; R94.31 Abnormal electrocardiogram [ECG] [EKG]; R06.02 Shortness of breath; W07.XXXA Fall from chair, initial encounter; Y93.9 Activity, unspecified; Y92.22 Religious institution as the place of occurrence of the external cause; Y99.8 Other external cause status; Z03.818 Encounter for observation for suspected exposure to other biological agents ruled out; Z79.899 Other long term (current) drug therapy
CPT/HCPCS: 0241U; 12011; 36415; 70450; 72125; 80048; 80076; 83690; 83735; 83880; 84484; 85025; 86140; 93005; 96365; 99285; J0131

== ENCOUNTER → 2025-02-01 08:03 | Outpatient (BNV) | payer MEDICARE, SELFPAY | PROVIDERS: Emergency Provider Emergency Medicine; Visit Provider Internal Medicine | DX: R94.31 Abnormal electrocardiogram [ECG] [EKG] (principal); W19.XXXA Unspecified fall, initial encounter | CPT/HCPCS: 93010 ==